=== PATIENT | female | born 1985 | race Asian ===

== ENCOUNTER 2021-10-04 08:00 | Outpatient (CLI) | payer OTHER | END 2021-10-04 23:59 | LOC: LAB 08:00 | PROVIDERS: ATTEND Nurse Practitioner | DX: R05.9 Cough, unspecified (principal); Z20.822 Contact with and (suspected) exposure to COVID-19 ==

== ENCOUNTER 2022-12-15 15:23 | Outpatient (CLI) | payer OTHER ==
--- NOTE | 2022-12-15 16:54 | XRAY Report ---
PROCEDURE: Hip w/Pelvis 1V LT INDICATIONS: CONTUSION OF LOWER BACK AND PELVIS TECHNIQUE: AP pelvis with lateral view(s) of the left hip(s). COMPARISON: None. FINDINGS: Bones: No fractures or dislocations. Pelvic ring appears intact. No suspicious bony lesions. Soft tissues: The visualized bowel gas pattern is normal. No suspicious soft tissue calcifications. IMPRESSION: No visualized acute fracture or dislocation. However, occult injury cannot be excluded. Recommend short interval imaging follow-up in 7-10 days as clinically indicated for additional evalua tion. Reviewed by: Joan Sinclair MD on 12/15/2022 4:53 PM PDT Approved by: Joan Sinclair MD on 12/15/2022 4:53 PM PDT Station ID: [id number]
--- NOTE | 2022-12-15 16:54 | XRAY Report ---
PROCEDURE: Lumbar Spine 2 View INDICATIONS: CONTUSION OF LOWER BACK AND PELVIS TECHNIQUE: 2 views of the lumbar spine were acquired. COMPARISON: None. FINDINGS: Bones: 5 [id number] vertebrae are present. There is trace retrolisthesis of L4 on L5. Moderate to severe disc and foraminal narrowing are noted L5-S1. No vertebral body compression fractures. No suspicious bony lesions. Soft tissues: Overlying bowel gas pattern is normal. No suspicious soft tissue calcifications. IMPRESSION: Degenerative changes most severe at L5-S1. Reviewed by: Joan Sinclair MD on 12/15/2022 4:52 PM PDT Approved by: Joan Sinclair MD on 12/15/2022 4:52 PM PDT Station ID: [id number]
== END 2022-12-15 15:24 | disposition home or self-care (01) ==
LOC: DI 15:23
PROVIDERS: ATTEND Registered Nurse
DX: S30.0XXA Contusion of lower back and pelvis, initial encounter (principal); M47.817 Spondylosis without myelopathy or radiculopathy, lumbosacral region